=== PATIENT | male | born 1940 | race Caucasian/White ===

== ENCOUNTER → 2016-06-26 | Outpatient (REF) | payer MEDICARE ==
[~2016-06-26] MED LIST: /PANT40TA; /PANT40TA OR; ACTO45TA OR; AMLO10TA; ASPI81TA83 OR; B-6 PO; BABY81CH; CINNAMON CAPS PO; COLA100C2 OR; CORE25TA OR; DEMA20TA OR; FERR325T OR; FISH OIL CAPS PO; FLEEENE4; FLON0.05; FOLITAB11 PO; GLUC500T; HUMALOG; HUMALOG INSULIN SC; INSULANT; INSULANT SC; LASI40TA OR; METFORMIN; METFORMIN PO; METO10TA2; MILKSUS; MIRALEX; MULTIVIT PO; NITR0.4S SL; NORT25CA2; NORT75CA2; NORTRIPTYLINE PO; PAME50CA; PERC5TAB8; PLAV75TA2 OR; POTA10CA2 OR; PRAV80TA; PRAV80TA OR; PRIN20TA3; PYRI100T2; TOPRAL XL PO; VALS80CA OR; VITAMIN B COMPLE1; VITAMIN B-12 PO; VITAMIN C PO; VITAMIN D50000 UNT OR; ZETI10TA OR
[2016-06-26 20:41] LABS: ALBUMIN 4.1 GM/DL (3.2-5.2); ALBUMIN/GLOBULIN RATIO 1.64 (1.00-1.93); BILIRUBIN,TOTAL 0.3 MG/DL (0.2-1.0); CALCIUM LEVEL 9.4 MG/DL (8.8-10.2); CREATININE FOR GFR 1.67 MG/DL (0.70-1.30); FREE T4 0.97 NG/DL (0.76-1.46); GLOMERULAR FILTRATION RATE 42.9 (>42); MAGNESIUM LEVEL 1.9 MG/DL (1.8-2.4); POTASSIUM SERUM 3.9 MEQ/L (3.5-5.1); TOTAL PROTEIN 6.6 GM/DL (6.4-8.2)
== END ==
LOC: M SFHCLERA 15:36
PROVIDERS: ATTEND Family Medicine
DX: E11.21 Type 2 diabetes mellitus with diabetic nephropathy (principal)
CPT/HCPCS: 80053; 83036; 83735; 84439; 84443; G0463

== ENCOUNTER → 2016-09-16 | Outpatient (REF) | payer MEDICARE | LOC: M SFHCLERA 15:29 | PROVIDERS: ATTEND Family Medicine | DX: E11.21 Type 2 diabetes mellitus with diabetic nephropathy (principal) | CPT/HCPCS: 83036; G0463 ==

== ENCOUNTER → 2016-10-04 | Outpatient (REF) | payer MEDICARE ==
[2016-10-04 20:33] LABS: MEAN CORPUSCULAR HEMOGLOBIN 33.2 pg (27.0-33.0); MEAN CORPUSCULAR VOLUME 100.4 fl (80.0-96.0); RED CELL DISTRIBUTION WIDTH 15.4 % (11.5-14.5); WHITE BLOOD COUNT 11.3 K/mm3 (4.0-10.0)
[2016-10-04 21:20] LABS: ALBUMIN 3.4 GM/DL (3.2-5.2); ALBUMIN/GLOBULIN RATIO 1.31 (1.00-1.93); BILIRUBIN,TOTAL 0.5 MG/DL (0.2-1.0); CALCIUM LEVEL 9.1 MG/DL (8.8-10.2); CREATININE FOR GFR 2.29 MG/DL (0.70-1.30); FREE T4 0.92 NG/DL (0.76-1.46); GLOMERULAR FILTRATION RATE 29.8 (>42)
== END ==
LOC: M SFHCLERA 15:21
PROVIDERS: ATTEND Family Medicine
DX: L29.9 Pruritus, unspecified (principal)

== ENCOUNTER → 2016-10-04 | Outpatient (CLI) | payer MEDICARE ==
--- NOTE | 2016-10-04 16:58 | REP ---
Chest two views HISTORY: Pruritus Comparison: 04/16/2013 Linear density is present in the left lower lobe consistent with atelectasis or scar. The right lung is clear. The heart is normal in size. The pulmonary vasculature is normal in appearance. The bony structure is intact. IMPRESSION: Left lower lobe atelectasis or scar. Signed by Jefferson Lizama MD 10/04/2016 04:49 P
== END ==
LOC: M LRY 15:30
PROVIDERS: ATTEND Family Medicine
DX: L29.9 Pruritus, unspecified (principal)
CPT/HCPCS: 71020; 80053; 84439; 84443; 85027; G0463

== ENCOUNTER → 2016-10-09 | Outpatient (REF) | payer MEDICARE ==
[2016-10-09 19:05] LABS: CALCIUM LEVEL 9.9 MG/DL (8.8-10.2); CREATININE FOR GFR 1.94 MG/DL (0.70-1.30); GLOMERULAR FILTRATION RATE 36.1 (>42)
[2016-10-09 19:10] LABS: POTASSIUM SERUM 5.4 MEQ/L (3.5-5.1)
== END ==
LOC: M SFHCLERA 12:06
PROVIDERS: ATTEND Family Medicine
DX: L29.9 Pruritus, unspecified (principal)

== ENCOUNTER → 2016-10-16 | Outpatient (REF) | payer MEDICARE ==
[2016-10-16 13:01] LABS: CREATININE FOR GFR 1.74 MG/DL (0.70-1.30); GLOMERULAR FILTRATION RATE 40.9 (>42); POTASSIUM SERUM 4.2 MEQ/L (3.5-5.1)
== END ==
LOC: M SFHCLERA 09:24
PROVIDERS: ATTEND Family Medicine
DX: N18.4 Chronic kidney disease, stage 4 (severe) (principal)

== ENCOUNTER → 2016-10-22 | Outpatient (REF) | payer MEDICARE | LOC: M SFHCLERA 14:46 | PROVIDERS: ATTEND Family Medicine | DX: D64.9 Anemia, unspecified (principal); Z53.8 Procedure and treatment not carried out for other reasons ==

== ENCOUNTER → 2016-10-23 | Outpatient (REF) | payer MEDICARE ==
[2016-10-23 13:01] LABS: BASO % 0.3 % (0.0-1.0); EOS # 0.3 K/mm3 (0.0-0.50); EOS % 3.8 % (0.0-3.0); LARGE UNSTAINED CELL # 0.1 K/mm3 (0.0-0.4); LARGE UNSTAINED CELL % 1.4 % (0.0-4.0); LYMPH # 0.9 K/mm3 (1.5-4.5); LYMPH % 9.8 % (24.0-44.0); MEAN CORPUSCULAR HEMOGLOBIN 32.3 pg (27.0-33.0); MEAN CORPUSCULAR HGB CONC 31.8 g/dl (32.0-36.5); MEAN CORPUSCULAR VOLUME 101.8 fl (80.0-96.0); MONO # 0.4 K/mm3 (0.0-0.8); MONO % 4.8 % (0.0-5.0); NEUTROPHILS # 7.3 K/mm3 (1.8-7.7); NEUTROPHILS % 79.9 % (36.0-66.0); PLATELET COUNT, AUTOMATED 171 k/mm3 (150-450); RED CELL DISTRIBUTION WIDTH 14.8 % (11.5-14.5); RETIC HEMOGLOBIN CONTENT CHr 31.4 PG (24-36); RETICULOCYTE ABSOLUTE ADVIA212 149 x10(9)/L (17-77); WHITE BLOOD COUNT 9.1 K/mm3 (4.0-10.0)
[2016-10-23 13:19] LABS: FOLATE > 24.0 NG/ML (>5.4); VITAMIN B12 LEVEL > 2000 PG/ML (247-911)
[2016-10-23 13:36] LABS: ALBUMIN 3.4 GM/DL (3.2-5.2); ANION GAP 4 MEQ/L (8-16); BLOOD UREA NITROGEN 21 MG/DL (7-18); CARBON DIOXIDE LEVEL 35 MEQ/L (21-32); CHLORIDE LEVEL 102 MEQ/L (98-107); CREATININE FOR GFR 1.52 MG/DL (0.70-1.30); FERRITIN 17 NG/ML (26-388); GLOMERULAR FILTRATION RATE 47.8 (>42); GLUCOSE, FASTING 185 MG/DL (83-110); PERCENT SATURATION 9.5 % (19.7-37.4); PHOSPHORUS LEVEL 2.7 MG/DL (2.5-4.9); POTASSIUM SERUM 4.6 MEQ/L (3.5-5.1); SODIUM LEVEL 141 MEQ/L (136-145); TOTAL IRON BINDING CAPACITY 390 UG/DL (250-450)
== END ==
LOC: M SFHCLERA 10:42
PROVIDERS: ATTEND Family Medicine
DX: D64.9 Anemia, unspecified (principal)

== ENCOUNTER → 2016-10-28 | Outpatient (CLI) | payer MEDICARE ==
[2016-10-28 19:12] LABS: VITAMIN B12 LEVEL > 2000 PG/ML
[2016-10-28 19:13] LABS: FOLATE > 24.0 NG/ML
== END ==
LOC: M LRY 10:50
PROVIDERS: ATTEND Psychiatry & Neurology Neurology
DX: R26.81 Unsteadiness on feet (principal); M62.81 Muscle weakness (generalized)

== ENCOUNTER → 2016-11-15 | Outpatient (CLI) | payer MEDICARE ==
--- NOTE | 2016-11-15 11:19 | REP ---
MR CERVICAL SPINE WITHOUT CONTRAST: HISTORY: Gait difficulty. COMPARISON: 08/03/2015. Facet hypertrophy is present on the left at the C2-3 level. This produces minimal narrowing of the left C2 neural foramen. The right C2 neural foramen is patent. A small central disc protrusion is present at the C3-4 level. There is minimal effacement of the thecal sac without spinal cord compression. Bilateral uncinate process and left facet hypertrophy are present. These findings produce mild narrowing of the C3 neural foramina. A disc bulge with associated osteophyte formation is present at the C4-5 level. There is minimal spinal cord compression. Bilateral uncinate process and left facet hypertrophy are present. These findings produce mild and moderate narrowing of the right and left C4 neural foramina respectively. A disc bulge with associated osteophyte formation is present at the C5-6 level. There is mild spinal cord compression. Bilateral uncinate process and left facet hypertrophy are present. These findings produce mild and severe narrowing of the right and left C5 neural foramina respectively. A disc bulge with associated osteophyte formation is present at the C6-7 level. The previously noted right paracentral disc protrusion is no seen. There is mild effacement of the thecal sac without spinal cord compression. Bilateral uncinate process hypertrophy is present. This produces moderate and mild narrowing of the right and left C6 neural foramina respectively. There is no other disc bulge or herniation. The remaining neural foramina are patent. The spinal cord is normal in signal intensity. The C4-5 through C6-7 intervertebral discs are decreased in height consistent with disc degeneration. Increased signal intensity on T2-weighted images is present in the endplates of the C4 and C5 vertebral bodies. This represents degenerative change. IMPRESSION: There is cervical spondylosis at the C2-3 through C6-7 level most significant at the C4-5 and C5-6 levels where there is mild spinal cord compression. The previously noted right paracentral disc protrusion at the C6-7 level is not seen. There is no other significant change. Signed by Jefferson Lizama MD 11/15/2016 11:44 A
--- NOTE | 2016-11-15 11:23 | REP ---
MRI THORACIC SPINE WITHOUT CONTRAST: HISTORY: Gait difficulty. A small central disc protrusion is present at the T6-7 level. There is minimal effacement of the thecal sac without spinal cord compression. The T6 neural foramina are patent. A small right paracentral disc protrusion is present at the T7-8 level. There is minimal effacement of thecal sac without spinal cord compression. The T7 neural foramina are patent. A small central disc protrusion is present at the T8-9 level. There is minimal effacement of the thecal sac without spinal cord compression. There is no other disc bulge or herniation. The remaining neural foramina are patent. There is an increase in the amount of epidural fat. This extends from the T2-3 level inferior to the T12-L1 level. There is minimal to mild effacement of the thecal sac without spinal cord compression. The spinal cord is normal in signal intensity. Normal signal intensity is present in the thoracic vertebral bodies. IMPRESSION: 1. Disc protrusions at the T6-7 through T8-9 levels without spinal cord compression. 2. Epidural lipomatosis. Signed by Jefferson Lizama MD 11/15/2016 11:45 A
--- NOTE | 2016-11-15 11:39 | REP ---
MRI LUMBAR SPINE WITHOUT CONTRAST: HISTORY: Gait difficulty. COMPARISON: 08/03/2015. Decreased signal intensity on T2-weighted images is present in the lumbar intervertebral discs. The L2-3 through L5-S1 intervertebral discs are decreased in height. These findings are consistent with disc degeneration. There is no disc bulge or herniation at the L1-2 and L2-3 levels. There is an increase in the amount of epidural fat. There is minimal thecal sac compression. The nerves exit the neural foramina without compression. A diffuse disc bulge is present at the L3-4 level. There is an increase in the amount of epidural fat. There is minimal compression of the thecal sac. There is hypertrophy of the posterior articulating facets. The L3 nerves exit the neural foramina without compression. A diffuse disc bulge and small right paracentral disc protrusion are present at the L4-5 level. There is an increase in the amount of epidural fat. There is minimal compression of the thecal sac. There is hypertrophy of the posterior articulating facets. The L4 nerves exit the neural foramina without compression. A diffuse disc bulge is present at the L5-S1 level. This abuts the thecal sac. There is an increase in the amount of epidural fat. There is minimal compression of the thecal sac. There is hypertrophy of the posterior articulating facets. The L5 nerves exit the neural foramina without compression. The conus medullaris is normal in appearance terminating at the level of the L1-2 intervertebral disc. Increased signal intensity on T2-weighted images is present in the end plates of the L5-S1 vertebral bodies. These represents degenerative change. IMPRESSION: 1. Epidural lipomatosis at the L1-2 and L2-3 levels with minimal thecal sac compression. 2. Diffuse disc bulge and epidural lipomatosis at the L3-4 level with minimal thecal sac compression. 3. Diffuse disc bulge and small right paracentral disc protrusion and epidural lipomatosis at the L4-5 level with minimal thecal sac compression. 4. Diffuse disc bulge at the L5-S1 level. This abuts the thecal sac. There is epidural lipomatosis with minimal thecal sac compression. There is no significant change compared to the previous study. Signed by Jefferson Lizama MD 11/15/2016 11:46 A
--- NOTE | 2016-11-15 11:58 | REP ---
MR BRAIN WITHOUT CONTRAST: HISTORY: Gait difficulty. Scattered punctate areas of increased signal intensity on T2-weighted images are present in the periventricular and subcortical white matter. This represents small vessel ischemic disease. There is no intraparenchymal hemorrhage, infarct, mass or midline shift. The ventricular system and cortical sulci as well as subarachnoid space in the posterior fossa are dilated consistent with mild volume loss. There is no extracerebral collection. Mucosal thickening is present in the right maxillary sinus. A right globe prosthesis is present. IMPRESSION: 1. Minimal small vessel ischemic disease. 2. Mild volume loss. Signed by Jefferson Lizama MD 11/15/2016 12:00 P
== END ==
LOC: M PLARAD 07:40
PROVIDERS: ATTEND Psychiatry & Neurology Neurology
DX: R26.81 Unsteadiness on feet (principal); M47.12 Other spondylosis with myelopathy, cervical region; R25.1 Tremor, unspecified; R20.2 Paresthesia of skin; M51.26 Other intervertebral disc displacement, lumbar region; M51.24 Other intervertebral disc displacement, thoracic region

== ENCOUNTER → 2016-11-22 | Outpatient (REF) | payer MEDICARE | LOC: M SFHCLERA 15:23 | PROVIDERS: ATTEND Family Medicine | DX: L29.9 Pruritus, unspecified (principal); N18.4 Chronic kidney disease, stage 4 (severe) | CPT/HCPCS: 85652; 86140; G0463 ==

== ENCOUNTER → 2016-12-12 | Outpatient (REF) | payer MEDICARE | LOC: M SFHCLERA 15:08 | PROVIDERS: ATTEND Family Medicine | DX: E11.21 Type 2 diabetes mellitus with diabetic nephropathy (principal) | CPT/HCPCS: 83036; G0463 ==

== ENCOUNTER → 2017-07-22 | Outpatient (REF) | payer MEDICARE ==
[2017-07-23 11:44] LABS: ALBUMIN 3.8 GM/DL (3.2-5.2); ANION GAP 6 MEQ/L (8-16); BLOOD UREA NITROGEN 27 MG/DL (7-18); CALCIUM LEVEL 9.2 MG/DL (8.8-10.2); CARBON DIOXIDE LEVEL 35 MEQ/L (21-32); CHLORIDE LEVEL 100 MEQ/L (98-107); CREATININE FOR GFR 1.73 MG/DL (0.70-1.30); GLOMERULAR FILTRATION RATE 41.1 (>42); GLUCOSE, FASTING 217 MG/DL (70-100); PHOSPHORUS LEVEL 2.8 MG/DL (2.5-4.9); POTASSIUM SERUM 4.9 MEQ/L (3.5-5.1); SODIUM LEVEL 141 MEQ/L (136-145)
== END ==
LOC: M SFHCLERA 16:11
DX: I10 Essential (primary) hypertension (principal)
CPT/HCPCS: 80069

== ENCOUNTER → 2017-09-03 | Outpatient (CLI) | payer MEDICARE | LOC: M LRY 16:52 | DX: M19.072 Primary osteoarthritis, left ankle and foot (principal); M89.8X7 Other specified disorders of bone, ankle and foot; L81.9 Disorder of pigmentation, unspecified | CPT/HCPCS: 73630; G0463 ==

== ENCOUNTER → 2017-09-04 | Outpatient (REF) | payer MEDICARE ==
[2017-09-04 18:20] LABS: BASO % 0.4 % (0.0-1.0); EOS # 0.4 10^3/uL (0.0-0.50); EOS % 4.4 % (0.0-3.0); HEMATOCRIT 37.7 % (42.0-52.0); HEMOGLOBIN 11.8 g/dl (13.5-17.5); IMMATURE GRANULOCYTE % 0.7 % (0-3.0); LYMPH # 1.4 10^3/uL (1.5-4.5); LYMPH % 16.8 % (24.0-44.0); MEAN CORPUSCULAR HEMOGLOBIN 31.4 pg (27.0-33.0); MEAN CORPUSCULAR HGB CONC 31.3 g/dl (32.0-36.5); MEAN CORPUSCULAR VOLUME 100.3 fl (80.0-96.0); MONO # 0.7 10^3/uL (0.0-0.8); MONO % 8.7 % (0.0-5.0); NEUTROPHILS # 5.8 10^3/uL (1.8-7.7); PLATELET COUNT, AUTOMATED 164 10^3/uL (150-450); RED BLOOD COUNT 3.76 10^6/uL (4.30-6.10); RED CELL DISTRIBUTION WIDTH 16.1 % (11.5-14.5); WHITE BLOOD COUNT 8.5 10^3/uL (4.0-10.0)
[2017-09-04 18:33] LABS: ANION GAP 5 MEQ/L (8-16); BLOOD UREA NITROGEN 35 MG/DL (7-18); C REACTIVE PROTEIN QUANTITATIV 0.96 MG/DL (0.00-0.30); CALCIUM LEVEL 8.6 MG/DL (8.8-10.2); CARBON DIOXIDE LEVEL 34 MEQ/L (21-32); CHLORIDE LEVEL 101 MEQ/L (98-107); GLOMERULAR FILTRATION RATE 39.2 (>42); GLUCOSE, FASTING 211 MG/DL (70-100); POTASSIUM SERUM 4.7 MEQ/L (3.5-5.1); SODIUM LEVEL 140 MEQ/L (136-145)
[2017-09-04 18:48] LABS: ERYTHROCYTE SEDIMENTATION RATE 29 mm/hr (0-20)
== END ==
LOC: M SFHCLERA 09:59
DX: S90.122A Contusion of left lesser toe(s) without damage to nail, initial encounter (principal); X58.XXXA Exposure to other specified factors, initial encounter; Y92.9 Unspecified place or not applicable; Y93.9 Activity, unspecified
CPT/HCPCS: 80048

== ENCOUNTER → 2017-09-11 | Outpatient (CLI) | payer MEDICARE | LOC: M RAD 14:40 | DX: I65.23 Occlusion and stenosis of bilateral carotid arteries (principal) | CPT/HCPCS: 93880 ==

== ENCOUNTER 2018-03-15 11:21 | Inpatient (IN) | payer MEDICARE ==
[2018-03-15 13:16] LABS: VENOUS BASE EXCESS -0.3 (-2.0-2.0); VENOUS HCO3 27.5 MEQ/L (23.0-27.0); VENOUS O2 SATURATION 69.2 % (60.0-80.0); VENOUS PARTIAL PRESSURE CO2 60.4 mmHg (38.0-50.0); VENOUS PARTIAL PRESSURE O2 40.7 mmHg (30.0-50.0); VENOUS PH 7.276 UNITS (7.330-7.430); VENOUS STANDARD HCO3 23.7 MEQ/L; VENOUS TOTAL CO2 29.3 MEQ/L (24.0-28.0)
[2018-03-15 13:17] LABS: BASO % 0.3 % (0.0-1.0); EOS # 0.3 10^3/uL (0.0-0.50); HEMATOCRIT 35.7 % (42.0-52.0); HEMOGLOBIN 11.2 g/dl (13.5-17.5); IMMATURE GRANULOCYTE % 0.7 % (0-3.0); LYMPH # 1.2 10^3/uL (1.5-4.5); MEAN CORPUSCULAR HEMOGLOBIN 30.6 pg (27.0-33.0); MEAN CORPUSCULAR HGB CONC 31.4 g/dl (32.0-36.5); MEAN CORPUSCULAR VOLUME 97.5 fl (80.0-96.0); MONO # 0.5 10^3/uL (0.0-0.8); MONO % 5.8 % (0.0-5.0); NEUTROPHILS # 6.6 10^3/uL (1.8-7.7); NEUTROPHILS % 76.2 % (36.0-66.0); PLATELET COUNT, AUTOMATED 156 10^3/uL (150-450); RED BLOOD COUNT 3.66 10^6/uL (4.30-6.10); RED CELL DISTRIBUTION WIDTH 15.2 % (11.5-14.5); WHITE BLOOD COUNT 8.7 10^3/uL (4.0-10.0)
[2018-03-15] MEDS: NS 1,000 ML IV ×2 (13:25→21:14)
[2018-03-15 13:55] LABS: ALBUMIN 3.2 GM/DL (3.2-5.2); ALBUMIN/GLOBULIN RATIO 1.23 (1.00-1.93); ALKALINE PHOSPHATASE 94 U/L (45-117); ALT/SGPT 26 U/L (12-78); ANION GAP 6 MEQ/L (8-16); AST/SGOT 16 U/L (7-37); BILIRUBIN,DIRECT < 0.1 MG/DL (0.0-0.2); BILIRUBIN,TOTAL 0.3 MG/DL (0.2-1.0); BLOOD UREA NITROGEN 45 MG/DL (7-18); CALCIUM LEVEL 8.2 MG/DL (8.8-10.2); CARBON DIOXIDE LEVEL 32 MEQ/L (21-32); CHLORIDE LEVEL 100 MEQ/L (98-107); CPK CREATINE PHOSPHOKINASE 103 U/L (39-308); GLOMERULAR FILTRATION RATE 31.1 (>42); GLUCOSE, FASTING 296 MG/DL (70-100); MB/CK RELATIVE INDEX 2.14 (< OR =4); NT-PRO BNP 47 PG/ML (<450); POTASSIUM SERUM 5.2 MEQ/L (3.5-5.1); SODIUM LEVEL 138 MEQ/L (136-145); TOTAL PROTEIN 5.8 GM/DL (6.4-8.2); TROPONIN I < 0.02 NG/ML (< 0.10)
[2018-03-15 14:16] LABS: LACTIC ACID SEPSIS PROTOCOL 2.6 MMOL/L (0.4-2.0)
[2018-03-15 14:58] LABS: KETONE, URINE AUTO RFX NEGATIVE (NEGATIVE); LEUKOCYTE ESTERASE UR AUTO RFX NEGATIVE (NEGATIVE); NITRITE, URINE AUTO RFX NEGATIVE (NEGATIVE); RBC, URINE AUTO RFX 1 /HPF (0-3); SPECIFIC GRAVITY UR AUTO RFX 1.013 (1.002-1.035); SQUAM EPITHELIAL CELL UR AURFX 0 /HPF (0-6); WBC, URINE AUTO RFX 0 /HPF (0-3)
[2018-03-15 16:35] LABS: LACTIC ACID SEPSIS PROTOCOL 2.5 MMOL/L (0.4-2.0)
[2018-03-15] MEDS ORDERED: DEXTROSE 50% 50 ML SYRINGE IV (17:15)
[2018-03-15] MEDS ORDERED: ONDANSETRON 4MG/2ML VIAL (J2405) IV (17:15)
[2018-03-15] MEDS ORDERED: GLUCOSE 4 GM CHEW TABLET PO (17:15)
[2018-03-15] MEDS ORDERED: GLUCAGON FOR INJ 1 MG VIAL (J1610) SC (17:15)
[2018-03-15] MEDS: HumaLOG INSULIN (NovoLOG) PER UNIT SC ×2 (17:30→21:00)
[2018-03-15 20:44] LABS: BEDSIDE GLUCOSE 229 MG/DL (83-110)
[2018-03-15] MEDS ORDERED: GABAPENTIN 300 MG CAP PO ×2 (21:00)
[2018-03-15] MEDS: FEBUXOSTAT 40 MG TABLET (ULORIC) PO (21:10)
[2018-03-15] MEDS: zolPIDEM TARTRATE 10MG TAB PO (21:11)
[2018-03-15] MEDS: PRAVASTATIN 20 MG TAB PO (21:11)
[2018-03-15] MEDS: CARVedilol 12.5 MG TAB PO (21:12)
[2018-03-15] MEDS: HEPARIN SOD (PORCINE) 5000 UNITS/ML VIAL SC (21:13)
[2018-03-15] MEDS: LEVEMIR (INSULIN DETEMIR) 1 UNITS/0.01ML SC (21:13)
[2018-03-15] MEDS: GABAPENTIN 300 MG CAP PO (21:32)
[2018-03-15] MEDS: DOCUSATE SODIUM 100 MG CAP PO (21:33)
[2018-03-16 00:29] LABS: LACTIC ACID SEPSIS PROTOCOL 1.7 MMOL/L (0.4-2.0)
[2018-03-16 04:53] LABS: HEMATOCRIT 34.2 % (42.0-52.0); HEMOGLOBIN 10.6 g/dl (13.5-17.5); MEAN CORPUSCULAR HEMOGLOBIN 29.4 pg (27.0-33.0); PLATELET COUNT, AUTOMATED 146 10^3/uL (150-450); RED CELL DISTRIBUTION WIDTH 15.1 % (11.5-14.5); WHITE BLOOD COUNT 7.9 10^3/uL (4.0-10.0)
[2018-03-16] MEDS: HEPARIN SOD (PORCINE) 5000 UNITS/ML VIAL SC ×3 (05:02→22:00)
[2018-03-16 05:17] LABS: ANION GAP 4 MEQ/L (8-16); BLOOD UREA NITROGEN 32 MG/DL (7-18); CALCIUM LEVEL 8.3 MG/DL (8.8-10.2); CARBON DIOXIDE LEVEL 31 MEQ/L (21-32); CHLORIDE LEVEL 102 MEQ/L (98-107); CREATININE FOR GFR 1.58 MG/DL (0.70-1.30); GLOMERULAR FILTRATION RATE 45.5 (>42); GLUCOSE, FASTING 187 MG/DL (70-100); MAGNESIUM LEVEL 2.3 MG/DL (1.8-2.4); POTASSIUM SERUM 4.6 MEQ/L (3.5-5.1); SODIUM LEVEL 137 MEQ/L (136-145)
[2018-03-16] MEDS: HumaLOG INSULIN (NovoLOG) PER UNIT SC ×4 (08:34→20:34)
[2018-03-16] MEDS: CETIRIZINE (ZyrTEC) 10 MG TAB PO (08:35)
[2018-03-16] MEDS: PYRIDOXINE 50 MG TAB PO (08:35)
[2018-03-16] MEDS: ASPIRIN 81 MG ENTERIC TAB PO (08:35)
[2018-03-16] MEDS: FOLIC ACID 1 MG TAB PO (08:35)
[2018-03-16] MEDS: CLOPIDOGREL 75 MG TAB PO (08:35)
[2018-03-16] MEDS: GABAPENTIN 300 MG CAP PO ×3 (08:35→20:31)
[2018-03-16] MEDS: PANTOPRAZOLE 40MG TAB (PROTONIX) PO (08:35)
[2018-03-16] MEDS: CARVedilol 12.5 MG TAB PO ×2 (08:36→20:32)
[2018-03-16] MEDS: FLUTICASONE PROP 0.05% NASAL SPRAY 16 GM (FLONASE) NARES (08:36)
[2018-03-16] MEDS: LEVEMIR (INSULIN DETEMIR) 1 UNITS/0.01ML SC ×2 (08:36→20:33)
[2018-03-16 11:40] LABS: BEDSIDE GLUCOSE 240 MG/DL (83-110)
[2018-03-16 12:55] LABS: C REACTIVE PROTEIN QUANTITATIV 1.01 MG/DL (0.00-0.30)
[2018-03-16 13:01] LABS: ERYTHROCYTE SEDIMENTATION RATE 27 mm/hr (0-20)
[2018-03-16] MEDS: amLODIPine 5 MG TAB PO (13:10)
[2018-03-16 16:37] LABS: BEDSIDE GLUCOSE 234 MG/DL (83-110)
[2018-03-16] MEDS: DOCUSATE SODIUM 100 MG CAP PO (17:08)
[2018-03-16 19:57] LABS: BEDSIDE GLUCOSE 241 MG/DL (83-110)
[2018-03-16] MEDS: FEBUXOSTAT 40 MG TABLET (ULORIC) PO (20:31)
[2018-03-16] MEDS: PRAVASTATIN 20 MG TAB PO (20:31)
[2018-03-16] MEDS: zolPIDEM TARTRATE 10MG TAB PO (20:33)
[2018-03-17] MEDS: HEPARIN SOD (PORCINE) 5000 UNITS/ML VIAL SC ×3 (05:58→21:29)
[2018-03-17 06:20] LABS: HEMOGLOBIN 11.7 g/dl (13.5-17.5); MEAN CORPUSCULAR HEMOGLOBIN 30.9 pg (27.0-33.0); MEAN CORPUSCULAR HGB CONC 31.6 g/dl (32.0-36.5); MEAN CORPUSCULAR VOLUME 97.6 fl (80.0-96.0); PLATELET COUNT, AUTOMATED 153 10^3/uL (150-450); RED BLOOD COUNT 3.79 10^6/uL (4.30-6.10); RED CELL DISTRIBUTION WIDTH 15.3 % (11.5-14.5); WHITE BLOOD COUNT 6.7 10^3/uL (4.0-10.0)
[2018-03-17 06:44] LABS: ANION GAP 3 MEQ/L (8-16); BLOOD UREA NITROGEN 20 MG/DL (7-18); CALCIUM LEVEL 8.9 MG/DL (8.8-10.2); CARBON DIOXIDE LEVEL 32 MEQ/L (21-32); CHLORIDE LEVEL 103 MEQ/L (98-107); CREATININE FOR GFR 1.45 MG/DL (0.70-1.30); GLOMERULAR FILTRATION RATE 50.2 (>42); GLUCOSE, FASTING 178 MG/DL (70-100); MAGNESIUM LEVEL 2.5 MG/DL (1.8-2.4); POTASSIUM SERUM 4.7 MEQ/L (3.5-5.1); SODIUM LEVEL 138 MEQ/L (136-145)
[2018-03-17] MEDS: HumaLOG INSULIN (NovoLOG) PER UNIT SC ×4 (09:21→21:30)
[2018-03-17] MEDS: LEVEMIR (INSULIN DETEMIR) 1 UNITS/0.01ML SC ×2 (09:22→21:30)
[2018-03-17] MEDS: GABAPENTIN 300 MG CAP PO ×3 (09:23→21:29)
[2018-03-17] MEDS: CLOPIDOGREL 75 MG TAB PO (09:23)
[2018-03-17] MEDS: PANTOPRAZOLE 40MG TAB (PROTONIX) PO (09:23)
[2018-03-17] MEDS: FOLIC ACID 1 MG TAB PO (09:23)
[2018-03-17] MEDS: CETIRIZINE (ZyrTEC) 10 MG TAB PO (09:23)
[2018-03-17] MEDS: CARVedilol 12.5 MG TAB PO ×2 (09:24→21:29)
[2018-03-17] MEDS: ASPIRIN 81 MG ENTERIC TAB PO (09:24)
[2018-03-17] MEDS: FLUTICASONE PROP 0.05% NASAL SPRAY 16 GM (FLONASE) NARES (09:24)
[2018-03-17] MEDS: PYRIDOXINE 50 MG TAB PO (09:24)
[2018-03-17] MEDS: FUROSEMIDE 80 MG TAB PO (11:55)
[2018-03-17 12:02] LABS: BEDSIDE GLUCOSE 237 MG/DL (83-110)
[2018-03-17] MEDS: LOSARTAN 25 MG TAB PO (13:04)
[2018-03-17 16:44] LABS: BEDSIDE GLUCOSE 353 MG/DL (83-110)
[2018-03-17] MEDS: DOCUSATE SODIUM 100 MG CAP PO ×2 (17:14→17:16)
[2018-03-17 21:01] LABS: BEDSIDE GLUCOSE 298 MG/DL (83-110)
[2018-03-17] MEDS: PRAVASTATIN 20 MG TAB PO (21:29)
[2018-03-17] MEDS: zolPIDEM TARTRATE 10MG TAB PO (21:30)
[2018-03-17] MEDS: FEBUXOSTAT 40 MG TABLET (ULORIC) PO (21:53)
[2018-03-18] MEDS: HEPARIN SOD (PORCINE) 5000 UNITS/ML VIAL SC (05:19)
[2018-03-18 06:27] LABS: HEMATOCRIT 37.4 % (42.0-52.0); HEMOGLOBIN 11.8 g/dl (13.5-17.5); MEAN CORPUSCULAR HEMOGLOBIN 29.9 pg (27.0-33.0); MEAN CORPUSCULAR HGB CONC 31.6 g/dl (32.0-36.5); MEAN CORPUSCULAR VOLUME 94.7 fl (80.0-96.0); PLATELET COUNT, AUTOMATED 165 10^3/uL (150-450); RED BLOOD COUNT 3.95 10^6/uL (4.30-6.10); RED CELL DISTRIBUTION WIDTH 15.1 % (11.5-14.5); WHITE BLOOD COUNT 7.9 10^3/uL (4.0-10.0)
[2018-03-18 06:44] LABS: ANION GAP 5 MEQ/L (8-16); BLOOD UREA NITROGEN 19 MG/DL (7-18); CALCIUM LEVEL 9.2 MG/DL (8.8-10.2); CARBON DIOXIDE LEVEL 31 MEQ/L (21-32); CHLORIDE LEVEL 101 MEQ/L (98-107); CREATININE FOR GFR 1.51 MG/DL (0.70-1.30); GLOMERULAR FILTRATION RATE 47.9 (>42); GLUCOSE, FASTING 208 MG/DL (70-100); MAGNESIUM LEVEL 2.2 MG/DL (1.8-2.4); POTASSIUM SERUM 4.3 MEQ/L (3.5-5.1); SODIUM LEVEL 137 MEQ/L (136-145)
[2018-03-18] MEDS: LOSARTAN 25 MG TAB PO (08:36)
[2018-03-18] MEDS: CLOPIDOGREL 75 MG TAB PO (08:36)
[2018-03-18] MEDS: FOLIC ACID 1 MG TAB PO (08:36)
[2018-03-18] MEDS: GABAPENTIN 300 MG CAP PO (08:36)
[2018-03-18] MEDS: HumaLOG INSULIN (NovoLOG) PER UNIT SC (08:37)
[2018-03-18] MEDS: PYRIDOXINE 50 MG TAB PO (08:37)
[2018-03-18] MEDS: LEVEMIR (INSULIN DETEMIR) 1 UNITS/0.01ML SC (08:38)
[2018-03-18] MEDS: FUROSEMIDE 80 MG TAB PO (08:38)
[2018-03-18] MEDS: ASPIRIN 81 MG ENTERIC TAB PO (08:38)
[2018-03-18] MEDS: CARVedilol 12.5 MG TAB PO (08:39)
[2018-03-18] MEDS: CETIRIZINE (ZyrTEC) 10 MG TAB PO (08:39)
[2018-03-18] MEDS: PANTOPRAZOLE 40MG TAB (PROTONIX) PO (08:39)
== END 2018-03-18 10:15 | disposition home or self-care (01) | DRG 683 ==
LOC: M MSPAV 03-17 20:25 → M ED 11:21 → M ED INP 17:06 → M PCU 20:13
DX: N17.9 Acute kidney failure, unspecified (principal); I13.0 Hypertensive heart and chronic kidney disease with heart failure and stage 1 through stage 4 chronic kidney disease, or unspecified chronic kidney disease; E87.2 Acidosis; M62.81 Muscle weakness (generalized); E11.40 Type 2 diabetes mellitus with diabetic neuropathy, unspecified; I50.9 Heart failure, unspecified; M10.9 Gout, unspecified; K21.9 Gastro-esophageal reflux disease without esophagitis; G47.33 Obstructive sleep apnea (adult) (pediatric); Z95.1 Presence of aortocoronary bypass graft; N18.4 Chronic kidney disease, stage 4 (severe); F41.9 Anxiety disorder, unspecified; E66.01 Morbid (severe) obesity due to excess calories; I65.8 Occlusion and stenosis of other precerebral arteries; Z79.899 Other long term (current) drug therapy; Z79.82 Long term (current) use of aspirin; E78.00 Pure hypercholesterolemia, unspecified; Z87.891 Personal history of nicotine dependence; I16.0 Hypertensive urgency; Z79.4 Long term (current) use of insulin

== ENCOUNTER → 2018-05-11 | Outpatient (REF) | payer MEDICARE ==
[~2018-05-11] MED LIST changes: +AMIT100TA PO; +ASPI1TAB PO; +CARV25TA PO; +CETI10TA PO; +CLOP75TA2 PO; +COLA100C5 PO; +FEBU40TA PO; +FLON1SPR NARES; +FOLI1TAB11 PO; +FURO40TA2 PO; +GABA-843 PO; +GABA600T4 PO; +HUMA100I3 SC; +INSUHUMDS SC; +IRBE75TA5 PO; +KRIL1000 PO; +NITR4TASL SL; +PANT40TA3 PO; +PRAV80TA2 PO; +PYRI50TA8 PO; +SPIR-10 PO; +TOUJ1.2I SC; +VICT18IN SC; +VITA50TA43 PO; +ZOLP10TA2 PO; +ZYRTTAB8 PO
[2018-05-11 20:33] LABS: CALCIUM LEVEL 8.6 MG/DL (8.8-10.2); CREATININE FOR GFR 1.73 MG/DL (0.70-1.30); POTASSIUM SERUM 4.7 MEQ/L (3.5-5.1)
== END ==
LOC: M SFHCLERA 15:11
PROVIDERS: ATTEND Family Medicine
DX: I87.8 Other specified disorders of veins (principal)
CPT/HCPCS: 80048; G0463

== ENCOUNTER → 2018-07-02 | Outpatient (CLI) | payer MEDICARE ==
--- NOTE | 2018-07-02 16:26 | REP ---
Clinical: COPD . Comparison: 03/17/2018 . Technique: PA and lateral. Findings: The mediastinum and cardiac silhouette are normal. Prior sternotomy and CABG again noted. The lung flores demonstrate chronic-appearing changes without acute consolidation, effusion, or pneumothorax. The skeletal structures are intact and normal. Impression: 1. No acute cardiopulmonary process. Electronically Signed by Pepe Ellis MD 07/02/2018 04:18 P
== END ==
LOC: M LRY 15:50
PROVIDERS: ATTEND Family Medicine
DX: J44.1 Chronic obstructive pulmonary disease with (acute) exacerbation (principal); E11.21 Type 2 diabetes mellitus with diabetic nephropathy
CPT/HCPCS: 71046; 80053; 83036; 85025; G0463

== ENCOUNTER → 2018-07-02 | Outpatient (REF) | payer MEDICARE ==
[2018-07-02 20:33] LABS: BASO % 0.4 % (0.0-1.0); EOS # 0.5 10^3/uL (0.0-0.50); EOS % 5.1 % (0.0-3.0); HEMATOCRIT 40.1 % (42.0-52.0); HEMOGLOBIN 12.5 g/dl (13.5-17.5); LYMPH # 1.8 10^3/uL (1.5-4.5); LYMPH % 19.3 % (24.0-44.0); MEAN CORPUSCULAR HEMOGLOBIN 30.1 pg (27.0-33.0); MEAN CORPUSCULAR HGB CONC 31.2 g/dl (32.0-36.5); MEAN CORPUSCULAR VOLUME 96.6 fl (80.0-96.0); MONO # 0.8 10^3/uL (0.0-0.8); MONO % 8.5 % (0.0-5.0); NEUTROPHILS # 6.2 10^3/uL (1.8-7.7); NEUTROPHILS % 66.5 % (36.0-66.0); PLATELET COUNT, AUTOMATED 198 10^3/uL (150-450); RED BLOOD COUNT 4.15 10^6/uL (4.30-6.10); WHITE BLOOD COUNT 9.3 10^3/uL (4.0-10.0)
[2018-07-02 20:41] LABS: ALBUMIN 3.7 GM/DL (3.2-5.2); BILIRUBIN,TOTAL 0.3 MG/DL (0.2-1.0); CALCIUM LEVEL 9.1 MG/DL (8.8-10.2); CREATININE FOR GFR 1.56 MG/DL (0.70-1.30); GLOMERULAR FILTRATION RATE 46.2 (>42); POTASSIUM SERUM 4.7 MEQ/L (3.5-5.1); TOTAL PROTEIN 6.5 GM/DL (6.4-8.2)
[2018-07-02 20:47] LABS: HEMOGLOBIN A1c 7.3 %
== END ==
LOC: M SFHCLERA 15:41
PROVIDERS: ATTEND Family Medicine
DX: E11.21 Type 2 diabetes mellitus with diabetic nephropathy (principal); J44.1 Chronic obstructive pulmonary disease with (acute) exacerbation

== ENCOUNTER → 2018-11-22 | Outpatient (REF) | payer MEDICARE ==
[~2018-11-22] MED LIST changes: -/PANT40TA; -/PANT40TA OR; -ASPI1TAB PO; +ASPI81TA26 PO; +PROT1TAB2; +PROT1TAB2 OR
[2018-11-22 20:31] LABS: CHOLESTEROL RISK RATIO 2.786 (<5)
[2018-11-22 20:43] LABS: HEMOGLOBIN A1c 7.3 %
== END ==
LOC: M SFHCLERA 09:09
PROVIDERS: ATTEND Family Medicine
DX: E11.21 Type 2 diabetes mellitus with diabetic nephropathy (principal)

== ENCOUNTER → 2019-03-03 | Outpatient (REF) | payer MEDICARE ==
[~2019-03-03] MED LIST changes: -FEBU40TA PO; +FEBU40TA4 PO
[2019-03-09 12:45] LABS: PERCENT SATURATION 3.6 % (19.7-50.0)
== END ==
LOC: M LAB REF 12:54
PROVIDERS: ATTEND Internal Medicine Nephrology
DX: D50.0 Iron deficiency anemia secondary to blood loss (chronic) (principal)

== ENCOUNTER 2019-03-11 10:20 | Outpatient (CLI) | payer MEDICARE ==
[~2019-03-11] VITALS: Ht 185.4 cm; Wt 149.0 kg
[2019-03-11 10:30] VITALS: BP 180/76
[2019-03-11] MEDS ORDERED: IRON SUCROSE 25 MG in NS 50 ML IV ONE (11:00)
[2019-03-11] MEDS ORDERED: IRON SUCROSE 475 MG in NS 250 ML IV ONE (11:00)
[2019-03-11 11:15] VITALS: BP 138/63
[2019-03-11 12:15] VITALS: BP 149/66
[2019-03-11 13:15] VITALS: BP 141/57
[2019-03-11 14:15] VITALS: BP 148/65
[2019-03-11 15:30] VITALS: BP 136/57
== END 2019-03-11 15:30 | disposition home or self-care (01) ==
LOC: M INFU 10:20
PROVIDERS: ATTEND Internal Medicine Nephrology
DX: D50.9 Iron deficiency anemia, unspecified (principal); Z79.899 Other long term (current) drug therapy
CPT/HCPCS: 96365; 96366; 96375; J1756

== ENCOUNTER 2019-04-09 08:43 | Outpatient (CLI) | payer MEDICARE ==
[~2019-04-09] VITALS: Ht 185.4 cm; Wt 147.0 kg
[2019-04-09 08:45] VITALS: BP 157/70
[2019-04-09] MEDS ORDERED: ALBUTEROL SULFATE 2.5 MG/0.5 ML INH NEB SOLN INH PRN (09:00)
[2019-04-09] MEDS ORDERED: methylPREDNISolone INJ 125 MG/2 ML VIAL (J2930) IV PRN (09:00)
[2019-04-09] MEDS ORDERED: EPINEPHrine INJ 1 MG/ML 1ML AMP IM PRN (09:00)
[2019-04-09] MEDS ORDERED: FERRIC CARBOXYMALTOSE INJ 750 MG in NS 250 ML IV ONE (09:00)
[2019-04-09] MEDS ORDERED: NS 1,000 ML IV ONE (09:00)
[2019-04-09] MEDS ORDERED: diphenhydrAMINE INJ 50MG/ML VIAL (J1200) IV PRN (09:00)
[2019-04-09 09:45] VITALS: BP 146/67
[2019-04-09 11:15] VITALS: BP 129/63
[2019-04-09 11:45] VITALS: BP 165/67
== END 2019-04-09 11:45 | disposition home or self-care (01) ==
LOC: M INFU 08:43
PROVIDERS: ATTEND Internal Medicine Nephrology
DX: D50.9 Iron deficiency anemia, unspecified (principal)
CPT/HCPCS: 96365; 96366; J1439

== ENCOUNTER → 2019-07-06 | Outpatient (REF) | payer MEDICARE ==
[~2019-07-06] MED LIST changes: +IRBE75TA4 PO; -IRBE75TA5 PO
[2019-07-06 18:30] LABS: PERCENT SATURATION 9.5 % (19.7-50.0)
== END ==
LOC: M LAB REF 16:58
PROVIDERS: ATTEND Internal Medicine Nephrology
DX: D50.0 Iron deficiency anemia secondary to blood loss (chronic) (principal)

== ENCOUNTER 2019-11-12 07:47 | Outpatient (CLI) | payer MEDICARE ==
[~2019-11-12] VITALS: Ht 185.4 cm; Wt 147.7 kg
[~2019-11-12 07:47] MED LIST changes: +PANT40TA29 PO; -PANT40TA3 PO
[2019-11-12 08:00] VITALS: BP 148/61
[2019-11-12] MEDS ORDERED: methylPREDNISolone 125MG 2ML VIAL IV PRN (08:00)
[2019-11-12] MEDS ORDERED: EPINEPHrine INJ 1 MG/ML 1ML AMP IM PRN (08:00)
[2019-11-12] MEDS ORDERED: diphenhydrAMINE 50MG/ML VIAL (J1200) IV PRN (08:00)
[2019-11-12] MEDS ORDERED: ALBUTEROL SULFATE 2.5 MG/0.5 ML INH NEB SOLN INH PRN (08:00)
[2019-11-12] MEDS ORDERED: NS 1,000 ML IV SCH (08:00)
[2019-11-12] MEDS ORDERED: FERRIC CARBOXYMALTOSE INJ 750 MG in NS 250 ML IV ONE (08:00)
[2019-11-12] MEDS ORDERED: CICL0.7739 TOP (08:45)
[2019-11-12 09:00] VITALS: BP 130/52
[2019-11-12 10:00] VITALS: BP 137/63
[2019-11-12 11:00] VITALS: BP 134/52
[2019-11-12 11:45] VITALS: BP 137/64
== END 2019-11-12 11:45 | disposition home or self-care (01) ==
LOC: M INFU 07:47
PROVIDERS: ATTEND Internal Medicine Nephrology
DX: D50.0 Iron deficiency anemia secondary to blood loss (chronic) (principal)
CPT/HCPCS: 96365; 96366; J1439

== ENCOUNTER 2019-11-19 08:04 | Outpatient (CLI) | payer MEDICARE ==
[~2019-11-19] VITALS: Ht 185.4 cm; Wt 147.4 kg
[~2019-11-19 08:04] MED LIST changes: +CICL0.7739 TOP
[2019-11-19 08:15] VITALS: BP 134/57
[2019-11-19] MEDS ORDERED: NS 1,000 ML IV SCH (08:30)
[2019-11-19] MEDS ORDERED: methylPREDNISolone 125MG 2ML VIAL IV PRN (08:30)
[2019-11-19] MEDS ORDERED: FERRIC CARBOXYMALTOSE INJ 750 MG in NS 250 ML IV ONE (08:30)
[2019-11-19] MEDS ORDERED: diphenhydrAMINE 50MG/ML VIAL (J1200) IV PRN (08:30)
[2019-11-19] MEDS ORDERED: EPINEPHrine INJ 1 MG/ML 1ML AMP IM PRN (08:30)
[2019-11-19] MEDS ORDERED: ALBUTEROL SULFATE 2.5 MG/0.5 ML INH NEB SOLN INH PRN (08:30)
[2019-11-19 10:00] VITALS: BP 145/62
[2019-11-19 11:00] VITALS: BP 151/65
== END 2019-11-19 11:00 ==
LOC: M INFU 08:04
PROVIDERS: ATTEND Internal Medicine Nephrology
DX: D50.0 Iron deficiency anemia secondary to blood loss (chronic) (principal); Z79.899 Other long term (current) drug therapy
CPT/HCPCS: 96365; 96366; J1439

== ENCOUNTER → 2020-02-10 | Outpatient (REF) | payer MEDICARE ==
[2020-02-10 18:30] LABS: PERCENT SATURATION 6.2 % (19.7-50.0)
== END ==
LOC: M LAB REF 16:59
PROVIDERS: ATTEND Internal Medicine Nephrology
DX: D50.0 Iron deficiency anemia secondary to blood loss (chronic) (principal)

== ENCOUNTER 2020-02-15 10:41 | Outpatient (CLI) | payer MEDICARE ==
[~2020-02-15] VITALS: Ht 182.9 cm; Wt 147.0 kg
[2020-02-15 10:58] VITALS: BP 132/56
[2020-02-15] MEDS ORDERED: EPINEPHrine INJ 1 MG/ML 1ML AMP IM PRN (11:00)
[2020-02-15] MEDS ORDERED: ALBUTEROL SULFATE 2.5 MG/0.5 ML INH NEB SOLN INH PRN (11:00)
[2020-02-15] MEDS ORDERED: methylPREDNISolone 125MG 2ML VIAL IV PRN (11:00)
[2020-02-15] MEDS ORDERED: diphenhydrAMINE 50MG/ML VIAL (J1200) IV PRN (11:00)
[2020-02-15] MEDS: ACETAMINOPHEN TAB 650MG DOSE (2X325MG) PO ONE (11:02)
[2020-02-15] MEDS: FERRIC CARBOXYMALTOSE INJ 750 MG in NS 250 ML IV ONE (11:23)
[2020-02-15 13:15] VITALS: BP 135/80
[2020-02-15 14:02] VITALS: BP 135/80
[2020-02-15] MEDS: NS 1,000 ML IV SCH (14:34)
== END 2020-02-15 13:15 | disposition home or self-care (01) ==
LOC: M INFU 10:41
PROVIDERS: ATTEND Internal Medicine Nephrology
DX: D50.9 Iron deficiency anemia, unspecified (principal); Z79.899 Other long term (current) drug therapy
CPT/HCPCS: 96365; J1439